=== PATIENT | female | born 1985 | race Caucasian/White ===

== ENCOUNTER 2018-05-07 17:44 | Emergency (ER) | payer SELFPAY ==
[~2018-05-07] VITALS: Ht 157.5 cm; Wt 106.6 kg
[2018-05-07 17:47] VITALS: BP 117/66
--- NOTE | 2018-05-07 17:55 | NUR ---
PT AMBULATES W/ STEADY GAIT TO BED 9 AT THIS TIME W/ O INCIDENT. REPORT GIVEN TO COURT BRENNER.
--- NOTE | 2018-05-07 17:57 | NUR ---
A 32 YO F BIB SELF W/ C/O BACK PAIN 8/10 X TODAY THAT IS SHARP, AND PT REPORTS THAT SHE TOOK A NORCO AT 1500 AND IT DID NOT EASE THE PAIN. PT REPORTS THAT THE PAIN IS SHARP AND RADIATES DOWN TO HER VAGINA. PT DENIES ANY TRAUMA OR INJURY TO THE SITE. PT DENIES N/V/D. REPORTS FEELING CHILLED, WEAK, AND HAS A VERY DRY MOUTH, PT. DENIES ANY PAIN OR BURNING UPON URINATION. ER MD NOTIFIED. WILL CONTINUE TO MONITOR.
[2018-05-07 18:47] VITALS: BP 117/66
--- NOTE | 2018-05-07 18:47 | NUR ---
Patient discharged with v/s stable. Written and verbal after care instructions given and explained. Patient alert, oriented and verbalized understanding of instructions. Ambulatory with steady gait. All questions addressed prior to discharge. ID band removed. Patient advised to follow up with PMD. Rx of MACROBID AND NAPROXEN given. Patient educated on indication of medication including possible reaction and side effects. Opportunity to ask questions provided and answered.
[2018-05-07 18:59] LABS: BILIRUBIN,URINE NEGATIVE (NEGATIVE); BLOOD, URINE LARGE (NEGATIVE); LEUKOCYTE ESTERASE ,URINE TRACE (NEGATIVE); NITRITE, URINE NEGATIVE (NEGATIVE); UGLUCOSE NEGATIVE (NEGATIVE)
[2018-05-07 19:04] LABS: APPEARANCE,URINE SLIGHTLY HAZY (CLEAR); COLOR,URINE YELLOW (YELLOW)
[2018-05-07 19:09] LABS: RBC,URINE 3-10 (FEW) /HPF (0-5)
[2018-05-07 19:10] LABS: WBC,URINE 0-5 (RARE) /HPF (0-5)
== END 2018-05-07 18:47 | disposition home or self-care (01) ==
LOC: MED 17:44
DX: N39.0 Urinary tract infection, site not specified (principal); Z88.0 Allergy status to penicillin; Z88.1 Allergy status to other antibiotic agents
CPT/HCPCS: 81001; 81025; 99283

== ENCOUNTER 2018-08-12 22:57 | Emergency (ER) | payer SELFPAY ==
[~2018-08-12] VITALS: Ht 157.5 cm; Wt 98.2 kg
[2018-08-12 23:02] VITALS: BP 130/79
[2018-08-12] MEDS ORDERED: DICYCLOMINE HCL LIQUID 20 MG, ALUMINUM HYD/MAG/SIMETHICONE 30 ML, LIDOCAINE VISCOUS 2% ... PO ONE ×3 (23:20)
[2018-08-12] MEDS ORDERED: MORPHINE SULFATE 4 MG/ML SYR IM ONE (23:40)
[2018-08-13 00:15] LABS: BASOPHILS % (AUTO) 0.3 % (0.0-2.0); EOSINOPHILS # (AUTO) 0.3 K/uL (0-0.4); EOSINOPHILS % (AUTO) 2.4 % (0.0-4.0); HEMATOCRIT 38.1 % (36-48); HEMOGLOBIN 12.3 g/dL (12.0-16.0); LYMPHOCYTES # (AUTO) 4.8 K/uL (2.5-16.5); LYMPHOCYTES % (AUTO) 35.1 % (20.5-51.1); MEAN CORPUSCULAR HEMOGLOBIN 29 pg (27-31); MEAN CORPUSCULAR HGB CONC 32 g/dL (33-37); MEAN CORPUSCULAR VOLUME 89.4 fL (80-94); MONOCYTES # (AUTO) 0.8 K/uL (0.8-1.0); MONOCYTES % (AUTO) 5.7 % (1.7-9.3); NEUTROPHILS # (AUTO) 7.7 K/uL (1.8-7.7); NEUTROPHILS % (AUTO) 56.5 % (42.2-75.2); PLATELET COUNT (AUTO) 294 K/uL (140-450); RED BLOOD CELL COUNT(AUTO) 4.26 MIL/uL (4.20-5.40); RED CELL DISTRIBUTION WIDTH 13.3 % (11.6-13.7); WHITE BLOOD COUNT (AUTO) 13.6 K/uL (4.8-10.8)
[2018-08-13 00:23] LABS: APPEARANCE,URINE SLIGHTLY HAZY (CLEAR); BILIRUBIN,URINE NEGATIVE (NEGATIVE); BLOOD, URINE 3+ (NEGATIVE); COLOR,URINE YELLOW (YELLOW); LEUKOCYTE ESTERASE ,URINE NEGATIVE (NEGATIVE); NITRITE, URINE NEGATIVE (NEGATIVE); UGLUCOSE NEGATIVE (NEGATIVE)
[2018-08-13 00:33] LABS: RBC,URINE 3-10 (FEW) /HPF (0-5); WBC,URINE 0-5 (RARE) /HPF (0-5)
[2018-08-13 00:34] LABS: URINE AMORPHOUS URATE 1+ /HPF (None Seen)
[2018-08-13 00:40] LABS: ALBUMIN 3.4 g/dL (3.4-5.0); ANION GAP 9.3 (8-16); CARBON DIOXIDE 27.4 mmol/L (21-32); CREATININE 0.9 mg/dL (0.6-1.3); POTASSIUM 3.7 mmol/L (3.5-5.1); TOTAL BILIRUBIN 0.2 mg/dL (0.0-1.0)
[2018-08-13 00:57] VITALS: BP 125/78
== END 2018-08-13 00:58 | disposition home or self-care (01) ==
LOC: MED 22:57
DX: R10.13 Epigastric pain (principal); Z88.0 Allergy status to penicillin; Z88.1 Allergy status to other antibiotic agents; Z88.8 Allergy status to other drugs, medicaments and biological substances
CPT/HCPCS: 36415; 80053; 81001; 81025; 83690; 85025; 96372; 99284; J2270; 81002